=== PATIENT | male | born 1980 | race Hispanic/Latino ===

== ENCOUNTER 2022-07-13 06:59 | Day surgery (SDC) | payer OTHER ==
[2022-07-10 09:21] VITALS: BP 118/87
[2022-07-13] VITALS (12 sets, daily range): BP systolic 113–144; BP diastolic 66–95
[~2022-07-13] VITALS: Ht 170.2 cm; Wt 87.7 kg
[~2022-07-13 06:59] MED LIST: BUPIVACAINE/PF 0.25% 10ML VIAL IJ ONE; CEFAZOLIN SODIUM 2 GM VIAL IVPB SCH; LIDOCAINE 2%-EPI 1:200,000 20 ML VIAL IJ ONE
[2022-07-13] MEDS ORDERED: LACTATED RINGERS 1000ML 1,000 ML IV ONE (07:17)
[2022-07-13] MEDS ORDERED: AMOX1TAB16 PO (07:36)
[2022-07-13] MEDS ORDERED: MIDAZOLAM HCL 1 MG/ML 2ML VIAL ONE (08:18)
[2022-07-13] MEDS ORDERED: LIDOCAINE PF 100MG/5ML (2%) SYRINGE 5ML ONE (08:18)
[2022-07-13] MEDS ORDERED: PROPOFOL 10 MG/ML 20ML VIAL IV ONE ×2 (08:19→08:45)
[2022-07-13] MEDS ORDERED: FENTANYL CITRATE PF 50 MCG/1 ML 2ML VIAL ONE (08:19)
[2022-07-13] MEDS ORDERED: ONDANSETRON 4MG INJ ONE (08:37)
[2022-07-13] MEDS ORDERED: LIDOCAINE 2%-EPI 1:200,000 20 ML VIAL IJ ONE (08:43)
[2022-07-13] MEDS ORDERED: BUPIVACAINE/PF 0.25% 10ML VIAL IJ ONE (08:45)
[2022-07-13] MEDS ORDERED: KETOROLAC 30MG VIAL (30MG/ML) ONE (08:48)
== END 2022-07-13 10:35 | disposition home or self-care (01) ==
LOC: DAH 06:59
PROVIDERS: ATTEND Surgery
DX: L72.3 Sebaceous cyst (principal); Z20.822 Contact with and (suspected) exposure to COVID-19; Z72.89 Other problems related to lifestyle; Z87.891 Personal history of nicotine dependence; Z79.899 Other long term (current) drug therapy
CPT/HCPCS: 87426; 11404; A6260; J7030; A4452; J7120; J3010; J2001; J2250; J2704 ×2; J2405; J1885; J3490 ×4